=== PATIENT | female | born 1980 | race African-American/Black ===

== ENCOUNTER 2016-09-05 11:28 | Observation (INO) | payer MEDICAID ==
[~2016-09-05] VITALS: Ht 160 cm; Wt 103.4 kg
[~2016-09-05 11:28] MED LIST: PREN-88 PO
== END 2016-09-05 14:00 | disposition home or self-care (01) ==
LOC: L&D 11:28
PROVIDERS: ADMIT Obstetrics & Gynecology; ATTEND Obstetrics & Gynecology
DX: O26.893 Other specified pregnancy related conditions, third trimester (principal); R10.11 Right upper quadrant pain; Z3A.32 32 weeks gestation of pregnancy
CPT/HCPCS: 99281; G0378

== ENCOUNTER 2016-10-14 09:23 | Inpatient (IN) | payer MEDICAID ==
[~2016-10-14] VITALS: Ht 160 cm; Wt 133.8 kg
[~2016-10-14 09:23] MED LIST changes: +METHYLERGONOVINE MALEATE 0.2 MG/ML ONE
[2016-10-14] MEDS ORDERED: PREN1TAB23 (10:00)
[2016-10-14] MEDS: LACTATED RINGERS 1,000 ML IV SCH (11:08)
[2016-10-14] MEDS ORDERED: METHYLERGONOVINE MALEATE 0.2 MG/ML IM PRN (11:15)
[2016-10-14] MEDS ORDERED: MISOPROSTOL 100MCG TABLET VG SCH (11:15)
[2016-10-14] MEDS ORDERED: CARBOPROST TROMETHAMINE 250 MCG/ML AMPUL IM PRN (11:15)
[2016-10-14] MEDS ORDERED: MORPHINE SULFATE/PF 1MG/ML 10ML AMP ONE (11:37)
[2016-10-14] MEDS ORDERED: FENTANYL CITRATE/PF 50MCG/ML 2ML VIAL ONE (11:37)
[2016-10-14] MEDS ORDERED: KETOROLAC 60MG/2ML VIAL IM ONE (11:37)
[2016-10-14] MEDS ORDERED: OXYTOCIN 10 UNITS/ML 1ML ONE (11:37)
[2016-10-14] MEDS ORDERED: ONDANSETRON HCL 4MG/2ML VIAL ONE (11:37)
[2016-10-14] MEDS ORDERED: CEFAZOLIN SODIUM 1000MG/VIAL ONE ×2 (11:37→13:33)
[2016-10-14] MEDS ORDERED: PHENYLEPHRINE HCL 10 MG/ML 1ML (IV VIAL) IV ONE (11:38)
[2016-10-14 11:50] LABS: BASOPHILS % 0.3 % (0.0-2.0); EOSINOPHILS % 1.2 % (0.0-5.0); HEMATOCRIT. 32.1 % (36.0-48.0); HEMOGLOBIN. 10.8 g/dL (12.0-16.0); LYMPHOCYTES % 26.4 % (20.0-50.0); MEAN CORPUSCULAR HEMOGLOBIN 30.3 pg (28.0-32.0); MEAN PLATELET VOLUME 7.7 fl (7.4-10.4); MONOCYTES % 5.6 % (2.0-8.0); NEUTROPHILS % 66.5 % (40.0-76.0); PLATELET 318 x1000/uL (130-400); RED BLOOD CELL COUNT 3.57 mill/uL (4.2-5.4)
[2016-10-14 11:51] LABS: CLARITY URINE CLEAR (CLEAR); COLOR URINE YELLOW (YELLOW); GLUCOSE URINE NEGATIVE (NEGATIVE); KETONES URINE NEGATIVE (NEGATIVE); LEUKOCYTE ESTERASE URINE TRACE (NEGATIVE); NITRITE URINE NEGATIVE (NEGATIVE); OCCULT BLOOD URINE TRACE (NEGATIVE); PROTEIN URINE NEGATIVE (NEGATIVE); SPECIFIC GRAVITY URINE 1.023 (1.005-1.030)
[2016-10-14] MEDS ORDERED: METOCLOPRAMIDE HCL 10MG/2ML VIAL ONE (11:55)
[2016-10-14 11:58] LABS: INR 0.9; PARTIAL THROMBOPLASTIN TIME 29.6 sec (24.0-34.0); PROTHROMBIN TIME 9.6 sec
[2016-10-14 12:01] LABS: *AMPHETAMINES SCREEN URINE NEGATIVE (NEGATIVE); *BARBITURATES SCREEN URINE NEGATIVE (NEGATIVE); *BENZODIAZEPINES SCREEN URINE NEGATIVE (NEGATIVE); *COCAINE SCREEN URINE NEGATIVE (NEGATIVE); CANNABINOID URINE SCREEN NEGATIVE (NEGATIVE); METHADONE URINE SCREEN NEGATIVE (NEGATIVE); OPIATES URINE SCREEN NEGATIVE (NEGATIVE); PHENCYCLIDINE URINE SCREEN NEGATIVE (NEGATIVE)
[2016-10-14] MEDS ORDERED: CITRIC ACID/SODIUM CITRATE SOLN 30ML UDC PO NR (12:15)
[2016-10-14 12:33] LABS: RUBELLA IGG 178.4 IU/mL (4.99-10)
[2016-10-14 12:34] LABS: HEPATITIS B SURFACE ANTIGEN NEGATIVE
[2016-10-14] MEDS ORDERED: DEXT 5%/LR + PITOCIN 20UNITS/L 1,000 ML IV SCH (13:11)
[2016-10-14] MEDS ORDERED: ONDANSETRON HCL 4MG/2ML VIAL IV PRN ×2 (13:15→14:45)
[2016-10-14] MEDS ORDERED: HYDROCODONE/ACETAMINOPHEN 5/325MG TABLET PO PRN ×2 (13:15)
[2016-10-14] MEDS ORDERED: LANOLIN OINT 0.25 GM TUBE TOP PRN (13:15)
[2016-10-14] MEDS ORDERED: IBUPROFEN 400MG TABLET PO PRN (13:15)
[2016-10-14] MEDS ORDERED: RHO(D) IMMUNE GLOBULIN 300 MCG/SYR IM PRN (13:15)
[2016-10-14] MEDS ORDERED: MIDAZOLAM HCL 2 MG/2 ML VIAL ONE (13:53)
[2016-10-14] MEDS ORDERED: GLYCOPYRROLATE 0.2 MG/ML 2ML VIAL ONE (13:53)
[2016-10-14] MEDS ORDERED: DEXAMETHASONE 4MG/ML 1ML VIAL ONE (13:56)
[2016-10-14] MEDS ORDERED: FENTANYL CITRATE/PF 50MCG/ML 2ML VIAL IV PRN (14:45)
[2016-10-14] MEDS ORDERED: NALOXONE HCL 0.4 MG/ML 1ML VIAL IV PRN (14:45)
[2016-10-14] MEDS ORDERED: DIPHENHYDRAMINE 50MG/ML VIAL IV PRN (14:45)
[2016-10-14] MEDS ORDERED: PENICILLIN G POTASSIUM 5 MMU in DEXT 5% WATER 100 ML IV SCH (18:00)
[2016-10-14] MEDS: DEXT 5%/LR + PITOCIN 20UNITS/L 1,000 ML IV SCH (18:42)
[2016-10-14] MEDS ORDERED: ACETAMINOPHEN 325MG TABLET PO NR (19:15)
[2016-10-14] MEDS: CLINDAMYCIN 900 MG in DEXTROSE 5% WATER 50 ML IV SCH (19:48)
[2016-10-14 20:15] VITALS: BP 121/72
[2016-10-14 20:45] VITALS: BP 127/85
[2016-10-14] MEDS: GENTAMICIN 100MG PREMIX 100 ML IV SCH (21:09)
[2016-10-14 21:15] VITALS: BP 105/65
[2016-10-14 21:45] VITALS: BP 109/64
[2016-10-14] MEDS ORDERED: KETOROLAC 30MG/ML VIAL IV PRN (21:45)
[2016-10-14] MEDS ORDERED: PENICILLIN G POTASSIUM 2.5 MMU in DEXTROSE 5% WATER 50 ML IV SCH (22:00)
[2016-10-15] VITALS: BP 123/77
[2016-10-15] MEDS: DEXT 5%/LR + PITOCIN 20UNITS/L 1,000 ML IV SCH (03:39)
[2016-10-15] MEDS: CLINDAMYCIN 900 MG in DEXTROSE 5% WATER 50 ML IV SCH ×2 (03:42→11:48)
[2016-10-15] MEDS: GENTAMICIN 100MG PREMIX 100 ML IV SCH ×2 (05:21→14:10)
[2016-10-15 06:45] LABS: BASOPHILS % 0.1 % (0.0-2.0); EOSINOPHILS % 0.1 % (0.0-5.0); HEMATOCRIT. 25.7 % (36.0-48.0); HEMOGLOBIN. 8.5 g/dL (12.0-16.0); LYMPHOCYTES % 17.8 % (20.0-50.0); MEAN CORPUSCULAR HEMOGLOBIN 29.9 pg (28.0-32.0); MEAN CORPUSCULAR VOLUME 90.5 fL (81.0-99.0); MEAN PLATELET VOLUME 8.2 fl (7.4-10.4); MONOCYTES % 5.6 % (2.0-8.0); NEUTROPHILS % 76.4 % (40.0-76.0); PLATELET 277 x1000/uL (130-400); RED BLOOD CELL COUNT 2.84 mill/uL (4.2-5.4); RED CELL DISTRIBUTION WIDTH 14.6 % (11.6-14.6)
[2016-10-15 07:01] LABS: CARBON DIOXIDE 23 mEq/L (21-32); CHLORIDE 105 mEq/L (98-107)
[2016-10-15 08:56] VITALS: BP 109/64
[2016-10-15] MEDS ORDERED: PRENATAL VIT/FE FUMARATE/FA TABLET PO SCH (09:00)
[2016-10-15] MEDS: LACTATED RINGERS 1,000 ML IV SCH (15:01)
[2016-10-15 15:52] VITALS: BP 107/63
[2016-10-15 19:25] VITALS: BP 113/62
[2016-10-15] MEDS: IBUPROFEN 800MG TABLET PO PRN (20:51)
[2016-10-16 00:10] VITALS: BP 112/67
[2016-10-16 03:55] VITALS: BP 114/74
[2016-10-16 08:00] VITALS: BP 112/71
[2016-10-16] MEDS: IBUPROFEN 800MG TABLET PO PRN (16:09)
[2016-10-16 16:32] VITALS: BP 126/86
[2016-10-16 19:20] VITALS: BP 119/81
[2016-10-16] MEDS ORDERED: BISACODYL 5MG TABLET PO PRN (21:45)
[2016-10-16 23:21] VITALS: BP 130/81
[2016-10-17 06:10] VITALS: BP 133/104
[2016-10-17] MEDS: IBUPROFEN 800MG TABLET PO PRN (06:12)
[2016-10-17 07:55] VITALS: BP 104/71
== END 2016-10-17 12:30 | disposition home or self-care (01) | DRG 540 ==
LOC: OBSVTOIN 09:23 → L&D 09:23 → 7EST PP/OB 20:25
PROVIDERS: ADMIT Obstetrics & Gynecology; ATTEND Obstetrics & Gynecology
PROC: 10D00Z1 Extraction of Products of Conception, Low, Open Approach (ICD-10-PCS; principal; 2016-10-14 13:02)
DX: O34.211 Maternal care for low transverse scar from previous cesarean delivery (principal); D62 Acute posthemorrhagic anemia; O99.214 Obesity complicating childbirth; O24.429 Gestational diabetes mellitus in childbirth, unspecified control; Z68.43 Body mass index [BMI] 50.0-59.9, adult; O90.81 Anemia of the puerperium; E66.9 Obesity, unspecified; Z37.0 Single live birth; Z3A.39 39 weeks gestation of pregnancy
CPT/HCPCS: 36415; 80048; 80305; 81001; 82947; 82962; 85025; 85610; 85730; 86592; 86703; 86762; 86850; 86900; 86920; 87340; 88307; J0690; J1100; J1580; J1885; J2210; J2250; J2274; J2370; J2405; J2540; J2590; J2765; J3010; J3490; J7060; J7120